=== PATIENT | male | born 1980 | race Caucasian/White ===

== ENCOUNTER → 2021-12-21 | Outpatient (REF) | payer BC | LOC: M SFHCDERM 17:07 | PROVIDERS: ATTEND Nurse Practitioner Family | DX: D22.4 Melanocytic nevi of scalp and neck (principal) ==

== ENCOUNTER → 2022-01-09 | Outpatient (CLI) | payer BC | LOC: M RAD 11:45 | PROVIDERS: ATTEND Nurse Practitioner Family | DX: L72.9 Follicular cyst of the skin and subcutaneous tissue, unspecified (principal) ==

== ENCOUNTER → 2022-02-15 | Outpatient (REF) | payer BC | LOC: M SFHCDERM 16:20 | PROVIDERS: ATTEND Nurse Practitioner Family | DX: L73.9 Follicular disorder, unspecified (principal) ==

== ENCOUNTER → 2022-02-20 | Outpatient (CLI) | payer BC ==
[~2022-02-20] MED LIST: PROHANCE 279.3MG/ML 15ML VIAL ONE; PROHANCE 279.3MG/ML 5ML VIAL ONE
== END ==
LOC: M PLAIMG 09:31
PROVIDERS: ATTEND Nurse Practitioner Family
DX: R22.0 Localized swelling, mass and lump, head (principal)
CPT/HCPCS: 70553; A9576

== ENCOUNTER 2022-11-08 10:17 | Emergency (ER) | payer BC ==
[~2022-11-08] VITALS: Ht 182.9 cm; Wt 102.1 kg
[2022-11-08] MEDS ORDERED: CYCL5TAB PO (10:47)
[2022-11-08] MEDS ORDERED: ROSU5TAB5 PO (10:47)
[2022-11-08] MEDS ORDERED: VALA500T5 PO (10:47)
[2022-11-08 12:04] LABS: BASO % 0.7 % (0.0-1.0); EOS # 0.1 10^3/uL (0.0-0.5); EOS % 1.6 % (0.0-3.0); HEMATOCRIT 43.7 % (42.0-52.0); HEMOGLOBIN 14.4 g/dl (13.5-17.5); LYMPH # 2.2 10^3/uL (1.5-5.0); LYMPH % 39.5 % (24.0-44.0); MEAN CORPUSCULAR HEMOGLOBIN 31.2 pg (27.0-33.0); MEAN CORPUSCULAR VOLUME 94.6 fl (80.0-96.0); MONO # 0.4 10^3/uL (0.0-0.8); MONO % 6.4 % (2.0-8.0); NEUTROPHILS # 2.8 10^3/uL (1.5-8.5); NEUTROPHILS % 51.6 % (36.0-66.0); PLATELET COUNT, AUTOMATED 199 10^3/uL (150-450); RED BLOOD COUNT 4.62 10^6/uL (4.30-6.10); WHITE BLOOD COUNT 5.5 10^3/uL (4.0-10.0)
[2022-11-08 12:25] LABS: LIPASE 43 U/L (12-53)
[2022-11-08 12:27] LABS: ALBUMIN 4.3 G/DL (3.2-5.2); ALKALINE PHOSPHATASE 44 U/L (46-116); ALT/SGPT 32 U/L (7.0-40); AST/SGOT 19 U/L (<34); BILIRUBIN,DIRECT 0.2 MG/DL (<0.4); BILIRUBIN,TOTAL 0.7 MG/DL (0.3-1.2); TOTAL PROTEIN 7.5 G/DL (5.7-8.2)
[2022-11-08 12:59] LABS: HEMOGLOBIN A1c 5.3 % (4.0-6.0)
[2022-11-08 14:14] LABS: BLOOD UREA NITROGEN 17 MG/DL (9-23); CALCIUM LEVEL 9.6 MG/DL (8.5-10.1); CARBON DIOXIDE LEVEL 28 MMOL/L (20-31); CHLORIDE LEVEL 106 MMOL/L (98-107); CREATININE FOR GFR 1.11 MG/DL (0.70-1.30); GLOMERULAR FILTRATION RATE > 60.0 (>60); GLUCOSE, FASTING 91 MG/DL (60-100); SODIUM LEVEL 141 MMOL/L (136-145)
[2022-11-08] MEDS ORDERED: ISOVUE-370 76% 100ML VIAL As Ordered ONE (14:27)
[2022-11-08] MEDS ORDERED: PANT40TA29 PO (16:22)
[2022-11-08 16:54] VITALS: BP 130/81; TEMP 98; O2SAT 100
== END 2022-11-08 16:57 | disposition home or self-care (01) ==
LOC: M ED 10:17
DX: R68.81 Early satiety (principal); E78.5 Hyperlipidemia, unspecified; F10.10 Alcohol abuse, uncomplicated; Z88.0 Allergy status to penicillin; Z88.1 Allergy status to other antibiotic agents; Z88.6 Allergy status to analgesic agent; Z79.899 Other long term (current) drug therapy
CPT/HCPCS: 36415; 74177; 80047; 80048; 80076; 83036; 83690; 85025; 99284; Q9967

== ENCOUNTER → 2023-01-15 | Outpatient (CLI) | payer BC ==
[~2023-01-15] MED LIST changes: +CYCL5TAB PO; +PANT40TA29 PO; -PROHANCE 279.3MG/ML 15ML VIAL ONE; -PROHANCE 279.3MG/ML 5ML VIAL ONE; +ROSU5TAB5 PO; +VALA500T5 PO
== END ==
LOC: M PLAIMG 12:43
DX: M25.552 Pain in left hip (principal)

== ENCOUNTER → 2023-03-14 | Outpatient (CLI) | payer BC ==
[2023-03-14 12:37] LABS: CHOLESTEROL RISK RATIO 3.3 (<5); HDL CHOLESTEROL 52.4 MG/DL (>40); LDL CHOLESTEROL 103.4 MG/DL (<100); NON-HDL-C 120.6 MG/DL
[2023-03-15 13:07] LABS: APOLIPOPROTEIN A-1 132 mg/dL (101-178); APOLIPOPROTEIN B 93 mg/dL (<90); APOLIPOPROTEIN B/A-1 RATIO 0.7 ratio (0.0-0.7); TESTOSTERONE FREE (DIRECT) 6.2 pg/mL (6.8-21.5)
== END ==
LOC: M WUC 08:54
DX: I25.10 Atherosclerotic heart disease of native coronary artery without angina pectoris (principal); E78.41 Elevated Lipoprotein(a); E78.00 Pure hypercholesterolemia, unspecified

== ENCOUNTER → 2023-03-29 | Outpatient (CLI) | payer BC | LOC: M WUC 09:38 | DX: M87.052 Idiopathic aseptic necrosis of left femur (principal); M16.12 Unilateral primary osteoarthritis, left hip ==